=== PATIENT | male | born 1970 | race Caucasian/White ===

== ENCOUNTER → 2021-02-12 | Outpatient (CLI) | payer BC ==
[~2021-02-12] VITALS: Ht 167.6 cm; Wt 93.0 kg
[~2021-02-12] MED LIST: LISINOPRIL-HCT1 EAC1 PO; ROSUVASTATIN CA10 MG PO; TOPROL XL25 MG PO
[2021-02-12 12:48] VITALS: BP 145/90
--- NOTE | 2021-02-12 13:00 | NUR ---
Pain Clinic Assessment: 1. History of Osteoarthritis: Not Applicable History of Rheumatoid Arthritis: Not Applicable 2. Height: 5 ft. 6 in. 167.6 cm. Weight: 205.0 lb. oz. 92.988 kg. Patient's BMI: 33.1 3. Vital Signs: BP: 145/90 Pulse: 94 Resp: 16 Temp: 02 Sat: 97 ECG Mon: 4. Pain Intensity: 6 5. Fall Risk: Dizziness: N Needs help standing or walking: N Fallen in the last 3 months: N Fall risk comments: 6. Patient on Blood Thinner: 7. History of Hypertension: Y 8. Opioid Therapy greater than 6 weeks: Opiate Contract Signed: 9. Risk Assessment Tool Provided: 0 LOW RISK 10. Functional Assessment Tool: 11. Recreational Drug Use: Never Drug Type: Tobacco Use: Never Smoker Tobacco Type: Amount or Packs/day: How Many Years: Alcohol Use: Yes Frequency: Weekly Quant: 3
--- NOTE | 2021-02-13 08:04 | HPC ---
[facility] [address] [address] PAIN MANAGEMENT CONSULTATION Name: RHONDA OELA Room #: REG DARCI YanLeo#: [id number] Admission: 02/12/21 Attend Phys: Curtis Hood DO Discharge: Date of : 66 Report #: [id number] THIS REPORT FOR: cc: Sandra De Souza MD, Emily G. MD Johnson, James E. DO ~ cc: Liya Giraldo RN DATE OF SERVICE: 02/12/2021 CHIEF COMPLAINT: Low back pain, left lower extremity pain with paresthesias. HISTORY OF PRESENT ILLNESS: As you know, the patient is a very pleasant 50-year-old male who reports progressive worsening pain that began in the low back, radiates down the right leg. States pain began 10/2020. He denies injury or trauma. He states he has sought treatment with izkj-bfk-ztrywyc medications, rest, relaxation. He has trialed chiropractic manipulation, which he found minimally beneficial. He tried escalating doses of Motrin, which he found unhelpful. The patient was given a Medrol Dosepak by his neurosurgery team, which he found initially beneficial, but lost efficacy quite quickly. He has been doing home stretching exercises, but has noted no pain improvement. The patient sought evaluation through Neurosurgery to discuss surgical options and they referred the patient after reviewing MRI for more conservative treatment to address symptoms before looking toward surgical options. The patient reports today his pain is constant. Describes the pain as an aching, throbbing, numbness and tingling. Places current pain score 6/10. Daily average at 6/10, worst pain has been is 10/10. The patient states that standing exacerbate symptoms, sitting tends to improve pain. The patient has been referred to discuss treatment options for suspected lumbar radiculopathy involving the left S1 nerve root. PAST MEDICAL HISTORY: 1. Hypertension. 2. Dyslipidemia. 3. Osteoarthritis. PAST SURGICAL HISTORY: Carpal tunnel release. SOCIAL HISTORY: The patient denies tobacco, alcohol or IV or illicit drug use. 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 He is not in litigation in regards to pain. He is unaccompanied at today's visit. REVIEW OF SYSTEMS: Positive for wearing corrective eyewear, hearing loss with tinnitus, numbness and tingling sensations involving the left lower extremity, history of head injury without residual deficits. All other review of systems [address] [address] PAIN MANAGEMENT CONSULTATION Name: RHONDA OLEA Room #: REG CL Farrah.#: [id number] Admission: 02/12/21 Attend Phys: Curtis Hood DO Discharge: Date of : 66 Report #: [id number] negative per 12-point review of systems other than those listed in history of present illness. Pain impact score 8/70, mild interference of daily activities secondary to pain. ALLERGIES: No known drug allergies. CURRENT MEDICATIONS: Rosuvastatin 10 mg once a day, lisinopril/hydrochlorothiazide 20/12.5 mg once a day, metoprolol XL 25 mg once a day. IMAGING: MRI lumbar spine obtained 02/01/2021 shows T12-L1 unremarkable. L1-L2 shows that there is diffuse disk bulge, disk desiccation, bilateral facet arthropathy, mild narrowing of the central canal, mild neural foraminal stenosis. L2-L3 shows diffuse disk bulge, bilateral facet hypertrophy, narrowing of the central canal to 8 mm. Moderate bilateral neural foraminal narrowing. L3-L4 shows diffuse disc bulge, bilateral facet arthropathy, narrowing of the central canal to 8 mm. Moderate left and moderate to advanced right neural foraminal narrowing. L4-L5 diffuse disc bulge. Small annular fissure posterior centrally, bilateral facet arthropathy, mild effacement of the ventral thecal sac with thecal sac measuring 1.1 cm. Moderate bilateral neural foraminal narrowing. L5-S1 disc desiccation, loss of intervertebral disc space. Bilateral facet arthropathy, left greater than right, foraminal osteophyte formation. No significant canal narrowing. Moderate to advanced left and moderate right neural foraminal narrowing. PHYSICAL EXAMINATION: VITAL SIGNS: Blood pressure 145/90, pulse 94, respiratory rate 16 and unlabored. The patient is 97% on room air. Height 5 feet 6 inches tall, weight 205 pounds, BMI calculated 33.1. GENERAL: Well-developed, well-nourished, well-hydrated 50-year-old male. He appears his stated age. He is placing current pain score 6/10. HEENT: Normocephalic, atraumatic. Pupils equal, round and reactive to light. Extraocular muscles are intact. Sclerae nonicteric without injection. Cranial nerves 2-12 grossly intact. Speech is fluent. The patient deemed a good historian. LUNGS: Clear, no wheeze, rhonchi or rales. CARDIOVASCULAR: Regular. No appreciable gallop, no rub. ABDOMEN: Soft, mildly obese, normoactive bowel sounds. EXTREMITIES: Show no clubbing, no cyanosis and no edema. MUSCULOSKELETAL: Lower extremity strength equal and symmetrical 5/5 intact to light touch from L1 through S2 dermatomes. Seated straight leg raising negative. Supine straight leg raising positive on the left. Baldev's test is negative. Modified Gaenslen's positive for axial low back pain. The patient does have some difficulty with standing on toes on the left, and achievable on the right. There is mild weakness with plantar flexion of the left foot when compared to the right. Muscle bulk and tone is equal and symmetrical in lower [facility] [address] [place] [address] PAIN MANAGEMENT CONSULTATION Name: RHONDA OLEA [id number] Admission: 02/12/21 Attend Phys: Curtis Hood DO Discharge: Date of : 66 Report #: [id number] extremities. ASSESSMENT: 1. Symptomatic lumbar radiculopathy. 2. 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 3. Neural foraminal stenosis of the lumbar spine. 4. Facet arthropathy, lumbar spine. 5. Chronic intractable pain. PLAN: 1. Based on today's physical exam and history, the patient has provided the description, the patient uses in regards to pain as well as the distribution of symptoms he is experiencing pain upon the likely source of the patient's pain is a lumbar radiculopathy. The patient sought evaluation through neurosurgery who advised the patient initially tried conservative treatment. If this is unsuccessful, then look towards decompression of the neural foramen at the L5-S1 level. The patient and I spent time today reviewing the treatment options we have available for lumbar radiculopathy following was discussed with the patient today. We discussed physical therapy, stretching exercises and core strengthening as a treatment approach. We discussed medication management utilizing neuropathic pain medications such as amitriptyline, nortriptyline, Cymbalta, Lyrica and gabapentin along with consistent nonsteroidal anti-inflammatory. We discussed lumbar epidural injections under fluoroscopic guidance. We also discussed spinal cord stimulator therapy and ultimately surgical options. After reviewing the risks and benefits of all the proposed treatment options, the patient chose to begin with a lumbar epidural injection under fluoroscopic guidance. 2. We have discussed the timing of the injection. The patient needs to clear his schedule for tomorrow to undergo the epidural injection. We will have him return tomorrow morning to undergo a lumbar epidural injection. He will be able then to take the rest of the day off for many activities. We have given him an appointment time tomorrow morning 02/13 to undergo the first in a series of requested epidural injections. 3. No medication changes made at today's visit. The patient will continue current medical therapy as prior prescribed. 4. We will see the patient back in followup visit tomorrow 02/13 to undergo the first in a series of requested lumbar epidural injections. We will keep you apprised of his response to treatment. 5. We wish to thank nurse practitioner, Liya Feliz, for the opportunity to see this patient in consultation. We will keep you apprised of his response to treatment as we address lumbar radicular symptoms involving the left lower [address] [address] PAIN MANAGEMENT CONSULTATION Name: RHONDA OLEA Room #: REG DARCI Zhang#: [id number] Admission: 02/12/21 Attend Phys: Curtis Hood DO Discharge: Date of : 66 Report #: [id number] extremity. Again, we wish to thank you for the opportunity to see the patient in consultation. <ELECTRONICALLY SIGNED> By: Curtis Hood DO 02/13/21 0804 [id number] 0116 Curtis Hood DO /nt
== END ==
LOC: PAIN 07:03
PROVIDERS: ATTEND Anesthesiology Pain Medicine
DX: M51.16 Intervertebral disc disorders with radiculopathy, lumbar region (principal); M48.061 Spinal stenosis, lumbar region without neurogenic claudication; G89.4 Chronic pain syndrome; I10 Essential (primary) hypertension; E78.5 Hyperlipidemia, unspecified; M19.90 Unspecified osteoarthritis, unspecified site; Z79.899 Other long term (current) drug therapy; Z79.891 Long term (current) use of opiate analgesic

== ENCOUNTER → 2021-02-13 | Outpatient (CLI) | payer BC ==
[~2021-02-13] VITALS: Ht 167.6 cm; Wt 92.9 kg
[2021-02-13 09:59] VITALS: BP 153/83
--- NOTE | 2021-02-13 10:11 | NUR ---
Pain Clinic Assessment: 1. History of Osteoarthritis: Not Applicable History of Rheumatoid Arthritis: Not Applicable 2. Height: 5 ft. 6 in. 167.6 cm. Weight: 204.8 lb. oz. 92.897 kg. Patient's BMI: 33.1 3. Vital Signs: BP: 153/83 Pulse: 115 Resp: 16 Temp: 02 Sat: 97 ECG Mon: 4. Pain Intensity: 6 5. Fall Risk: Dizziness: N Needs help standing or walking: N Fallen in the last 3 months: N Fall risk comments: 6. Patient on Blood Thinner: None 7. History of Hypertension: Y 8. Opioid Therapy greater than 6 weeks: Opiate Contract Signed: 9. Risk Assessment Tool Provided: 0 LOW RISK 10. Functional Assessment Tool: 11. Recreational Drug Use: Never Drug Type: Tobacco Use: Never Smoker Tobacco Type: Amount or Packs/day: How Many Years: Alcohol Use: Yes Frequency: Weekly Quant: 3
--- NOTE | 2021-02-15 12:10 | HPC ---
[facility] [place] [address] PAIN MANAGEMENT CONSULTATION Name: RHODNA OLEA Room #: REG Zach Vicente#: [id number] Admission: 02/13/21 Attend Phys: Curtis Hood DO Discharge: Date of : 66 Report #: [id number] THIS REPORT FOR: cc: Sandra De Souza MD, Emily G. MD Johnson, James E. DO ~ DATE OF SERVICE: 02/13/2021 CHIEF COMPLAINT: Low back pain, left lower extremity pain with paresthesias. HISTORY OF PRESENT ILLNESS: As you know, the patient is a very pleasant 50-year-old male with progressively worsening back pain, left lower extremity pain with paresthesias. The patient reports pain began on 10/20/2020. Denies injury or trauma. He sought treatment with bjex-ael-naxsezp medications, rest, relaxation. Unfortunately, his symptoms did not improve. He sought further evaluation with Neurosurgery to discuss surgical options. After reviewing the patient's MRI, he was referred to our clinic to trial epidural injections prior to looking toward surgical procedures. The patient was seen in consultation yesterday on 02/12/2021, diagnosed with lumbar radiculopathy secondary to the displacement of a lumbar intervertebral disk and established today's appointment to undergo lumbar epidural injection. He returns today in followup visit reporting a pain score of 6/10. He has had no changes in medication management since our last visit. He has suffered no new injury or trauma. He comes today for the first in a series of lumbar epidural injections. ALLERGIES: No known drug allergies. CURRENT MEDICATIONS: Rosuvastatin 10 mg once a day, lisinopril/hydrochlorothiazide 20/12.5 mg once a day, metoprolol XL 25 mg once a day. SOCIAL HISTORY: The patient continues to deny any tobacco, alcohol, IV or illicit drug use. 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 IMAGING: No new imaging available. PHYSICAL EXAMINATION: VITAL SIGNS: Blood pressure 153/83, pulse 115, respiratory rate 16 and unlabored. The patient 97% on room air. Height 5 feet 6 inches tall, weight 204.8 pounds, BMI calculated 33.1. GENERAL: Well-developed, well-nourished, well-hydrated 50-year-old male appearing stated age, pain is rated today at 6/10. HEENT: Normocephalic, atraumatic. He is wearing a mask in compliance with COVID-19 regulations. EXTREMITIES: Show no clubbing, no cyanosis. No appreciable edema. MUSCULOSKELETAL: Lower extremity strength remains symmetrical 5/5 [place] [address] PAIN MANAGEMENT CONSULTATION Name: EMMIERHONDARUBIA MEJIAS Room #: REG CLI Vicente#: [id number] Admission: 02/13/21 Attend Phys: Curtis Hood DO Discharge: Date of : 66 Report #: [id number] light touch from L1 through S2 dermatomes. Seated straight leg raising negative. Supine straight leg raising positive on the left. ASSESSMENT: 1. Symptomatic lumbar radiculopathy. 2. Displacement of lumbar intervertebral disk with radiculopathy. 3. Neural foraminal stenosis of lumbar spine. 4. Facet arthropathy, lumbar spine. 5. Chronic intractable pain. PLAN: 1. The patient returns today in followup visit to undergo first in a series of lumbar epidural injections under fluoroscopic guidance to address is 6/10 low back pain, left lower extremity pain with paresthesias. The patient has been advised the risks and benefits of a lumbar epidural injection. These risks include, but are not necessarily limited to; bleeding, bruising, infection, worsening pain, no relief of pain, also risk of temporary or permanent muscle weakness, temporary or permanent nerve damage, possible paralysis, post-dural puncture headache and . The patient states understood and wished to proceed. 2. No medication changes made at today's visit. The patient will continue current medical therapy as prior prescribed. 3. We will plan to see the patient back in followup visit in approximately 30 days. At that time, review the efficacy of today's lumbar epidural injection to determine if next in the series of epidural injections would be recommended. DESCRIPTION OF PROCEDURE: L5-S1 left paramedian epidural steroid injection under fluoroscopic guidance. This is the 1 procedure of the 2 series that the patient is undergoing. After obtaining written consent, the patient was taken back to the fluoroscopy suite, placed in a prone position with pillow under the abdomen to decrease lumbar lordosis. The skin overlying the lumbosacral area was then prepped and draped in aseptic fashion. The L5-L3kjfvoqcia interspace was then identified by AP fluoroscopy. The skin and subcutaneous tissue overlying the target site of injection was anesthetized with 3 mL 1% lidocaine. A 20-gauge 3-1/2 inch Tuohy needle was then advanced under fluoroscopic guidance towards the epidural space using a left paramedian approach. The epidural space was identified using loss of resistance to air technique. After negative aspiration for heme or cerebrospinal fluid, a total of 1 mL of Omnipaque was injected. A lumbar epidurogram was confirmed using both AP and lateral fluoroscopy. After negative aspiration for heme or cerebrospinal fluid, 5 mL solution containing 2 mL 40 mg per mL 80 mg total triamcinolone along with 3 mL of lidocaine 1% was injected in increments. Contrast spread was noted in [facility] [address] [place] [address] PAIN MANAGEMENT CONSULTATION Name: EMMIERHONDARUBIA MEJIAS Room #: REG CLI Josep.#: [id number] Admission: 02/13/21 Attend Phys: Curtis Hood DO Discharge: Date of : 66 Report #: [id number] posterior epidural space. The needle was then retracted approximately half way and needle tract flushed with 1 mL of 1 mL of 1% lidocaine. Needle was then removed. There were no apparent sensory or motor deficits in the lower extremity following the procedure. A sterile bandage was placed over the injection site. The heart rate, pulse, oximetry and blood pressure were continuously monitored after the procedure. There were no complications. The patient tolerated the procedure well and was carefully escorted to the recovery room in stable condition. There were no apparent complications. After meeting discharge criteria, the patient was then discharged home. <ELECTRONICALLY SIGNED> By: Curtis Hood DO 02/15/21 1210 1004 2100 Curtis Hood DO /nt
== END | disposition home or self-care (01) ==
LOC: PAIN 07:03
PROVIDERS: ATTEND Anesthesiology Pain Medicine
DX: M51.16 Intervertebral disc disorders with radiculopathy, lumbar region (principal); M47.26 Other spondylosis with radiculopathy, lumbar region; M48.061 Spinal stenosis, lumbar region without neurogenic claudication; G89.29 Other chronic pain; Z79.899 Other long term (current) drug therapy

== ENCOUNTER → 2021-03-19 | Outpatient (CLI) | payer BC ==
[~2021-03-19] VITALS: Ht 167.6 cm; Wt 90.7 kg
--- NOTE | ~2021-03-19 | HPC ---
[facility] [place] [address] PAIN MANAGEMENT CONSULTATION Name: RHONDA OLEA Room #: REG CLZach CheemaLeoDeniaLeo#: [id number] Admission: 03/19/21 Attend Phys: Curtis Hood DO Discharge: Date of : 66 Report #: [id number] THIS REPORT FOR: cc: Sandra De Souza MD, Emily G. MD Johnson, James E. DO ~ cc: AIDAN Acosta, Sandra De Souza MD DATE OF SERVICE: 03/19/2021 CHIEF COMPLAINT: Low back pain, left lower extremity pain and paresthesias. HISTORY OF PRESENT ILLNESS: As you know, the patient is a very pleasant 50-year-old male referred to our clinic for progressively worsening low back pain, left lower extremity pain with paresthesias. The patient underwent a lumbar epidural injection under fluoroscopic guidance at our initial visit of 02/13/2021. He reports improvement in symptoms with the epidural injection upwards of 60% improvement overall. He is now placing his pain no greater than 5/10. Describes the pain as more of a constant aching and throbbing sensation, exacerbated with standing and improves with sitting in the recent epidural injection. He returns today in followup visit to undergo second in the series of lumbar epidural injections in hopes of improving residual pain. He has had no changes in medication management since our last visit that would preclude him from undergoing an epidural injection today. There have been no new injuries or traumas. Today, he returns for the second in the series of epidural injections. ALLERGIES: No known drug allergies. CURRENT MEDICATIONS: Simvastatin, lisinopril, hydrochlorothiazide, metoprolol. SOCIAL HISTORY: The patient denies tobacco, alcohol, or IV or illicit drug use. 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 IMAGING: No new imaging available. PHYSICAL EXAMINATION: VITAL SIGNS: Blood pressure 134/83, pulse 86, respiratory rate 16 and unlabored. The patient is 99% on room air. Height 5 feet 6 inches tall, weight 200 pounds, BMI calculated 32.3. GENERAL: Well-developed, well-nourished, well-hydrated 50-year-old male appearing stated age, pain is rated 5/10. HEENT: Normocephalic, atraumatic. Pupils equal, round and responsive. EXTREMITIES: Show no clubbing, no cyanosis. No appreciable edema. MUSCULOSKELETAL: Lower extremity strength equal and symmetrical 5/5, intact to light touch from L1 through S2 dermatomes. Seated straight leg raising negative. Supine straight leg raising remains positive on the left about 60-degree angle. Ankle clonus negative. Babinski is negative. [address] [address] PAIN MANAGEMENT CONSULTATION Name: RHONDA OLEA RANDELL Room #: REG [facility] [id number] Admission: 03/19/21 Attend Phys: Curtis Hood DO Discharge: Date of : 66 Report #: [id number] ASSESSMENT: 1. Symptomatic lumbar radiculopathy. 2. Displacement of lumbar intervertebral disk with radiculopathy. 3. Neural foraminal stenosis of lumbar spine. 4. Facet arthropathy of lumbar spine. 5. Chronic intractable pain. PLAN: 1. The patient returns today in followup visit to undergo lumbar epidural injection under fluoroscopic guidance. He is very pleased with response to the initial injection reporting greater than 60% improvement in overall pain with the epidural injection. He returns today in followup visit in hopes of building on success of previous intervention to undergo next in the series of epidural injections to address residual pain. The patient has been advised the risks and benefits of the procedure, states understood and wished to proceed. 2. No medication changes made at today's visit. The patient will continue current medical therapy as prior prescribed. 3. The patient to return to our clinic on an as needed basis for the third in the series of lumbar epidural injections. I have advised the patient we have one remaining epidural injection to last until 10/14/2021. We will delay the next in the series of epidural injections in hopes of significant pain improvement with the second in the series. DESCRIPTION OF PROCEDURE: L5-S1 left paramedian epidural steroid injection under fluoroscopic guidance. This is the second procedure of the first series that the patient is undergoing. After obtaining written consent, the patient was taken back to the fluoroscopy suite, placed in a prone position with pillow under the abdomen to decrease lumbar lordosis. The skin overlying the lumbosacral area was then prepped and draped in aseptic fashion. The L5-S1 vertebral interspace was then identified by AP fluoroscopy. The skin and subcutaneous tissue overlying the target site of injection was anesthetized with 3 mL 1% lidocaine. A 20-gauge 3-1/2 inch Tuohy needle was then advanced under fluoroscopic guidance towards the epidural space using a left paramedian approach. The epidural space was identified using loss of resistance to air technique. After negative aspiration for heme or cerebrospinal fluid, a total of 1 mL of Omnipaque was injected. A lumbar epidurogram was confirmed using both AP and lateral fluoroscopy. After negative aspiration for heme or cerebrospinal fluid, 5 mL of a solution containing 2 mL 40 mg per mL 80 mg total triamcinolone along with 3 mL of lidocaine 1% was injected in increments. Contrast spread was noted posterior epidural space. The needle was then retracted approximately half way and needle tract flushed with 1 mL of 1% lidocaine. Needle was then removed. [facility] [address] [place] [address] PAIN MANAGEMENT CONSULTATION Name: EMMIERHONDARUBIA MEJIAS Room #: REG [facility].#: [id number] Admission: 03/19/21 Attend Phys: Curtis Hood DO Discharge: Date of : 66 Report #: [id number] There were no apparent sensory or motor deficits in the lower extremity following the procedure. A sterile bandage was placed over the injection site. The heart rate, pulse, oximetry and blood pressure were continuously monitored after the procedure. There were no apparent complications. The patient tolerated the procedure well and was carefully escorted to the recovery room in stable condition. There were no apparent complications. After meeting discharge criteria, the patient was then discharged home. By: 1530 2325 Curtis Hood DO /nt
[2021-03-19 10:18] VITALS: BP 134/83
--- NOTE | 2021-03-19 10:58 | NUR ---
Pain Clinic Assessment: 1. History of Osteoarthritis: Not Applicable History of Rheumatoid Arthritis: Not Applicable 2. Height: 5 ft. 6 in. 167.6 cm. Weight: 200.0 lb. oz. 90.720 kg. Patient's BMI: 32.3 3. Vital Signs: BP: 134/83 Pulse: 86 Resp: 16 Temp: 02 Sat: 99 ECG Mon: 4. Pain Intensity: 5 5. Fall Risk: Dizziness: N Needs help standing or walking: N Fallen in the last 3 months: N Fall risk comments: 6. Patient on Blood Thinner: None 7. History of Hypertension: Y 8. Opioid Therapy greater than 6 weeks: Opiate Contract Signed: 9. Risk Assessment Tool Provided: 0 LOW RISK 10. Functional Assessment Tool: 11. Recreational Drug Use: Never Drug Type: Tobacco Use: Never Smoker Tobacco Type: Amount or Packs/day: How Many Years: Alcohol Use: Yes Frequency: Quant:
== END | disposition home or self-care (01) ==
LOC: PAIN 07:08
PROVIDERS: ATTEND Anesthesiology Pain Medicine
DX: M51.16 Intervertebral disc disorders with radiculopathy, lumbar region (principal); M48.061 Spinal stenosis, lumbar region without neurogenic claudication; M47.26 Other spondylosis with radiculopathy, lumbar region; G89.29 Other chronic pain

== ENCOUNTER → 2021-05-01 | Outpatient (CLI) | payer BC ==
[~2021-05-01] VITALS: Ht 167.6 cm; Wt 90.3 kg
[~2021-05-01] MED LIST changes: +FISH OIL 1,0001 EAC9 PO
[2021-05-01 10:05] VITALS: BP 132/84
--- NOTE | 2021-05-01 10:26 | NUR ---
Pain Clinic Assessment: 1. History of Osteoarthritis: Not Applicable History of Rheumatoid Arthritis: Not Applicable 2. Height: 5 ft. 6 in. 167.6 cm. Weight: 199.0 lb. oz. 90.266 kg. Patient's BMI: 32.1 3. Vital Signs: BP: 132/84 Pulse: 81 Resp: 16 Temp: 02 Sat: 99 ECG Mon: 4. Pain Intensity: 4-7 W/ACTIVITY 5. Fall Risk: Dizziness: N Needs help standing or walking: N Fallen in the last 3 months: N Fall risk comments: 6. Patient on Blood Thinner: None 7. History of Hypertension: Y 8. Opioid Therapy greater than 6 weeks: Opiate Contract Signed: 9. Risk Assessment Tool Provided: 0 LOW RISK 10. Functional Assessment Tool: 11. Recreational Drug Use: Never Drug Type: Tobacco Use: Never Smoker Tobacco Type: Amount or Packs/day: How Many Years: Alcohol Use: Yes Frequency: Weekly Quant: 6
--- NOTE | 2021-05-07 15:04 | HPC ---
[address] [address] PAIN MANAGEMENT CONSULTATION Name: RHONDA OLEA Room #: REG DARCI [facility]#: [id number] Admission: 05/01/21 Attend Phys: Curtis Hood DO Discharge: Date of : 66 Report #: [id number] THIS REPORT FOR: cc: Sandra De Souza MD, Emily G. MD Johnson, James E. DO ~ cc: Kareem Moore MD DATE OF SERVICE: 05/01/2021 CHIEF COMPLAINT: Low back pain. HISTORY OF PRESENT ILLNESS: As you know, the patient is a 50-year-old male with longstanding history of low back pain with multiple surgeries, referred to our clinic to trial epidural injections under fluoroscopic guidance for which the patient reported good benefit. Most recent epidural injection gave 90% improvement in overall pain. He returns today in followup visit to undergo next in the series in hopes of building on success of previous intervention. The patient places his current pain score anywhere from 4-7/10. Pain is exacerbated with sitting and walking, improves with epidural injections. He returns today for the next in the series of epidural injections in hopes of improving pain. He has suffered no new injury, no new trauma or any changes in medication management that would preclude him from undergoing a lumbar epidural injection today. 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 CURRENT MEDICATIONS: See chart. SOCIAL HISTORY: The patient is retired, not receiving Workmen's Compensation, accompanied by a family member present in the room today. IMAGING: No new imaging available. PQRS: The patient has arthritic changes of lumbar spine, bilateral shoulders, bilateral hands. No rheumatoid arthritis. He is placing pain intensity today at around 4-7/10. He is not a fall risk, has not had a fall in the last 3 months, not on blood thinners, but history of hypertension. He is on opioids, has a low opiate addiction potential. Pain impact is 8/70, mild interference with daily activities secondary to pain. PHYSICAL EXAMINATION: VITAL SIGNS: Blood pressure 132/84, pulse 81, respiratory rate 16 and unlabored. The patient 99% on room air. Height 5 feet 6 inches tall, weight 199 pounds, BMI calculated 32.1. GENERAL: Well-developed, well-nourished, well-hydrated 50-year-old male appearing stated age, pain is rated anywhere from 4-7/10. [address] [address] PAIN MANAGEMENT CONSULTATION Name: RHONDA OLEA Room #: REG CLI [facility]#: [id number] Admission: 05/01/21 Attend Phys: Curtis Hood DO Discharge: Date of : 66 Report #: [id number] HEENT: Normocephalic, atraumatic. Pupils are round and responsive. EXTREMITIES: Show no clubbing, no cyanosis, no edema. MUSCULOSKELETAL: Lower extremity strength is symmetrical, 5/5. Seated straight leg raising negative. Supine straight leg raising negative. Fabere's test is negative. Modified Gaenslen is positive for axial low back pain. Well-healed surgical scars. ASSESSMENT: 1. Lumbar radiculopathy. 2. Facet arthropathy of lumbar spine. 3. Lumbosacral spondylosis with radiculopathy. 4. Osteoarthritis. PLAN: 1. The patient returns today in followup visit requesting to undergo lumbar epidural injection under fluoroscopic guidance to address ongoing low back and bilateral lower extremity pain. The patient has been advised risks and benefits of the procedure, states understood and wishes to proceed. 2. The patient was provided information in regard to spinal cord stimulator as a possible treatment option. This could be beneficial for the patient. He can look into this information as he wishes. If he wishes to move forward with the device, he is to contact our clinic. We will then get him established with Psychiatry. If he is an appropriate candidate, we can look towards possible trial implantation. If this is then successful, he can seek permanent implantation. 3. No medication changes made at today's visit. The patient will continue current medical therapy as prior prescribed. 4. We will see the patient back in followup visit on an as-needed basis. PROCEDURE NOTE DESCRIPTION OF PROCEDURE: L5-S1 interlaminar epidural steroid injection under fluoroscopic guidance. After obtaining written consent, the patient was taken back to fluoroscopy suite, placed in prone position with pillow under abdomen to decrease lumbar lordosis. Skin overlying lumbosacral area prepped and draped in aseptic fashion. Lumbar intervertebral spaces were identified by AP fluoroscopy. Skin and subcutaneous tissue overlying target site injection anesthetized with 3 mL 1% lidocaine. A 20 gauge, 3-1/2-inch Tuohy needle was advanced under fluoroscopic guidance towards the epidural space using an interlaminar approach. Epidural space was identified using loss of resistance to air technique. After negative aspiration for heme or cerebrospinal fluid, 0.2 mL of Omnipaque injected. Lumbar epidurogram confirmed using both AP and lateral fluoroscopy. After negative [address] [address] PAIN MANAGEMENT CONSULTATION Name: RHONDA OLEA Room #: REG DARCI [facility]#: [id number] Admission: 05/01/21 Attend Phys: Curtis Hood DO Discharge: Date of : 66 Report #: [id number] aspiration for heme or cerebrospinal fluid, 5 mL of a solution containing 2 mL 40 mg per mL, 80 mg total triamcinolone along with 3 mL of lidocaine 1% injected slowly. Needle retracted intermediate, flushed with 1 mL of 1% lidocaine and removed. Sterile bandage placed over injection site. No new motor deficits present in lower extremity following procedure. The patient tolerated the procedure well, carefully escorted to recovery room in stable condition. No apparent complications. After meeting discharge criteria, the patient discharged home. <ELECTRONICALLY SIGNED> By: Curtis Hood DO 05/07/21 [id number] Curtis Hood DO /nt
== END | disposition home or self-care (01) ==
LOC: PAIN 07:07
PROVIDERS: ATTEND Anesthesiology Pain Medicine
DX: M47.26 Other spondylosis with radiculopathy, lumbar region (principal); M47.27 Other spondylosis with radiculopathy, lumbosacral region; M54.5 Low back pain; I10 Essential (primary) hypertension; M19.90 Unspecified osteoarthritis, unspecified site; Z98.890 Other specified postprocedural states; Z79.899 Other long term (current) drug therapy; Z88.8 Allergy status to other drugs, medicaments and biological substances; Z91.041 Radiographic dye allergy status